=== PATIENT | female | born 1985 | race Caucasian/White ===

== ENCOUNTER 2016-09-06 13:23 | Emergency (ER) | payer MEDICAID ==
[~2016-09-06] VITALS: Ht 167.6 cm; Wt 93.0 kg
[~2016-09-06 13:23] MED LIST: ALPR.25 PO; BLOOKIT19; BUPR100T4 PO; FERR324T4 PO; GLUCOMTESTSTRIPS XX; INSU1MIS86 SQ; LANTUS2P SQ; METF1000 PO; MULT-65 PO; ONETKIT10 XX; PERI8.6T PO; PREG25 PO; PROM6.256 PO; PROP80CA PO; VITA-83 PO; Z.0.LANCETS XX
[2016-09-06 13:25] VITALS: BP 194/96; PULSE 101; RESP 17; TEMP 98.4; O2SAT 98
[2016-09-06] MEDS ORDERED: SODIUM CHLOR 0.9% 1000 ML INJ 1,000 ML IV SCH (14:04)
--- NOTE | 2016-09-06 14:12 | PD ---
HPI Chief Complaint: Abdominal Pain Time Seen by Provider: 14:04 Travel History International Travel<30 days: No Contact w/Intl Traveler<30days: No Traveled to known affect area: No History of Present Illness HPI This is a 30-year-old female with a history of diabetes mellitus, previous gallbladder disease, presents today with complaints of severe epigastric pain with radiation to her left lateral back. Patient reports nausea with no vomiting. She denies any fevers, chills. She does report pleuritic nature to the pain. There is also left sided abdominal pain in the lower abdominal area. The patient denies any dysuria urgency or frequency. The patient does have a history of tobacco use. The patient denies any long car rides, calf tenderness. PFSH Past Medical History Bipolar Disorder: Yes Depression: Yes Heart Rhythm Problems: Yes (TACHYCARDIA) Diabetes: Yes Diminished Hearing: No Kidney Stones: Yes Thyroid Disease: Yes Tubal Ligation: Yes Past Surgical History Abdominal Surgery: Yes (PYLORIC STENOSIS REPAIR AGE 4 WKS OLD) Social History Alcohol Use: No Tobacco Use: Yes (3 CIGARETTES A DAY) Substance Use: No Allergies-Medications (Allergen,Severity, Reaction): Coded Allergies: Albuterol (Verified Allergy, Severe, TACHYCARDIA, 09/06/16) Amoxicillin (Verified Allergy, Severe, "THROAT SWELLS", 09/06/16) Cephalexin (Verified Allergy, Severe, Rash, 09/06/16) Penicillin (Verified Allergy, Severe, STOP BREATHING, 09/06/16) Sulfa (Verified Allergy, Severe, Hives, 09/06/16) Reported Meds & Prescriptions Reported Meds & Active Scripts Active Lortab (Hydrocodone-Acetaminophen) 5-325 Mg Tab 1 Tab PO Q6H PRN Reglan (Metoclopramide HCl) 10 Mg Tab 10 Mg PO TID Bupropion HCl 100 Mg Tab 100 Mg PO TID Lyrica (Pregabalin) 25 Mg Cap 25 Mg PO BID Lantus Inj (Insulin Glargine) 1,000 Unit/10 Ml Vial 15 Units SQ HS Metformin (Metformin HCl) 1,000 Mg Tab 1,000 Mg PO BIDPC With meals Review of Systems Except as stated in HPI: all other systems reviewed are Neg General / Constitutional: No: Fever, Chills HENT: No: Headaches, Lightheadedness Cardiovascular: Positive: Chest Pain or Discomfort (left lower chest, upper abdominal, epigastric), No: Palpitations Respiratory: Positive: Pleuritic Pain, No: Cough, Shortness of Breath Gastrointestinal: Positive: Nausea, Abdominal Pain (left lateral), No: Vomiting Genitourinary: No: Frequency, Dysuria Musculoskeletal: No: Weakness, Pain Skin: No Rash Neurologic: No: Weakness, Dizziness Physical Exam Narrative GENERAL: Well-nourished, well-developed patient, in no acute respiratory distress. Complaining of pain. SKIN: Focused skin assessment warm/dry. HEAD: Normocephalic/atraumatic. EYES: No scleral icterus. No injection or drainage. NECK: Supple, trachea midline. CARDIOVASCULAR: Regular rate and rhythm without murmurs, gallops, or rubs. RESPIRATORY: Breath sounds equal bilaterally. No accessory muscle use. Limited secondary to patient reporting pain in her abdomen with respiration. GASTROINTESTINAL: Abdomen soft, nondistended. The patient has tenderness to palpation in her epigastrium and left upper quadrant. MUSCULOSKELETAL: No cyanosis, or edema. BACK: Nontender without obvious deformity. No CVA tenderness. NEUROLOGICAL: Awake and alert. Cranial nerves II through XII intact. Motor grossly within normal limits. Five out of 5 muscle strength in all muscle groups. Normal speech. Data Data Last Documented VS Vital Signs Date Time Temp Pulse Resp B/P Pulse Ox O2 Delivery O2 Flow Rate FiO2 09/06/16 18:00 104 16 141/72 98 Room Air 09/06/16 13:25 98.4 Orders Complete Blood Count With Diff (09/06/16 14:04) Comprehensive Metabolic Panel (09/06/16 14:04) Lipase (09/06/16 14:04) Urinalysis - C+S If Indicated (09/06/16 14:04) Iv Access Insert/Monitor (09/06/16 14:04) Ecg Monitoring (09/06/16 14:04) Oximetry (09/06/16 14:04) Ondansetron Inj (Zofran Inj) (09/06/16 14:15) Sodium Chlor 0.9% 1000 Ml Inj (Ns 1000 M (09/06/16 14:04) Sodium Chloride 0.9% Flush (Ns Flush) (09/06/16 14:15) Electrocardiogram (09/06/16 14:04) Hydromorphone Pf Inj (Dilaudid Pf Inj) (09/06/16 14:15) Ed Urine Pregnancytest Poc (09/06/16 14:04) Ckmb (Isoenzyme) Profile (09/06/16 14:04) Troponin I (09/06/16 14:04) Chest, Single Ap (09/06/16 15:35) Ct Abd/Pel W Iv Contrast(Rout) (09/06/16 15:50) Blood Glucose (09/06/16 15:55) Diatrizoate Liq ( Gastroview Liq) (09/06/16 16:09) Hydromorphone Pf Inj (Dilaudid Pf Inj) (09/06/16 17:45) Ondansetron Inj (Zofran Inj) (09/06/16 17:45) Iohexol 350 Inj (Omnipaque 350 Inj) (09/06/16 17:56) Labs Laboratory Tests Test 09/06/16 09/06/16 14:10 14:47 White Blood Count 14.2 TH/MM3 Red Blood Count 5.03 MIL/MM3 Hemoglobin 10.8 GM/DL Hematocrit 33.8 % Mean Corpuscular Volume 67.1 FL Mean Corpuscular Hemoglobin 21.4 PG Mean Corpuscular Hemoglobin 32.0 % Concent Red Cell Distribution Width 18.0 % Platelet Count 440 TH/MM3 Mean Platelet Volume 8.0 FL Neutrophils (%) (Auto) 70.6 % Lymphocytes (%) (Auto) 20.5 % Monocytes (%) (Auto) 5.9 % Eosinophils (%) (Auto) 2.1 % Basophils (%) (Auto) 0.9 % Neutrophils # (Auto) 10.0 TH/MM3 Lymphocytes # (Auto) 2.9 TH/MM3 Monocytes # (Auto) 0.8 TH/MM3 Eosinophils # (Auto) 0.3 TH/MM3 Basophils # (Auto) 0.1 TH/MM3 CBC Comment AUTO DIFF Differential Comment AUTO DIFF CONFIRMED Platelet Estimate HIGH Platelet Morphology Comment NORMAL Ovalocytes 1+ Sodium Level 138 MEQ/L Potassium Level 3.9 MEQ/L Chloride Level 103 MEQ/L Carbon Dioxide Level 27.1 MEQ/L Anion Gap 8 MEQ/L Blood Urea Nitrogen 9 MG/DL Creatinine 0.68 MG/DL Estimat Glomerular Filtration 100 ML/MIN Rate Random Glucose 89 MG/DL Calcium Level 9.6 MG/DL Total Bilirubin 0.3 MG/DL Aspartate Amino Transf 13 U/L (AST/SGOT) Alanine Aminotransferase 23 U/L (ALT/SGPT) Alkaline Phosphatase 72 U/L Total Creatine Kinase 47 U/L Troponin I LESS THAN 0.02 NG/ML Total Protein 8.0 GM/DL Albumin 3.7 GM/DL Lipase 118 U/L Urine Color YELLOW Urine Turbidity CLEAR Urine pH 6.0 Urine Specific [place] 1.011 Urine Protein NEG mg/dL Urine Glucose (UA) NEG mg/dL Urine Ketones NEG mg/dL Urine Occult Blood NEG Urine Nitrite NEG Urine Bilirubin NEG Urine Urobilinogen LESS THAN 2.0 MG/DL Urine Leukocyte Esterase NEG Urine RBC LESS THAN 1 /hpf Urine WBC LESS THAN 1 /hpf Urine Squamous Epithelial <1 /hpf Cells Urine Mucus FEW /lpf Microscopic Urinalysis Comment CULT NOT INDICATED MDM Medical Decision Making Medical Screen Exam Complete: Yes Emergency Medical Condition: Yes Differential Diagnosis Pancreatitis versus cholecystitis versus ACS Narrative Course 30-year-old female presents with complaints of abdominal pain. Patient reports upper abdominal pain. EKG and cardiac enzymes are within normal limits. Patient has no chest pain or chest pressure. She does have nausea with no vomiting yet. Labs including lipase showed no evidence of acute process except for an elevated white count of 14,000. CT scan of the and pelvis was ordered to rule out acute abdominal process. There was a follicular cysts and some thickened endometrium however no acute surgical abdomen on a. I discussed the findings with the patient. She states she was still having some discomfort however was improved. I did offer her admission for observation however she has requested to go home. She'll be given up her prescription in for Lortab and Reglan. She is instructed to return if she does any worsening symptoms i.e. worsening abdominal pain, fevers chills, nausea vomiting diarrhea, or any other reason concerns her. Diagnosis Primary Impression: Abdominal pain Additional Impressions: Nausea Diabetes mellitus Additional Instructions: Return if feeling worse, fevers chills, or any other reason. Hold your metformin 3 days. Scripts Hydrocodone-Acetaminophen (Lortab)5-325 Mg Tab1 Tab PO Q6H PRN (PAIN) #20 TAB Ref 0 Prov:Bo Medeiros MD 09/06/16 Metoclopramide (Reglan)10 Mg Tab10 Mg PO TID #30 TAB Ref 0 Prov:Bo Medeiros MD 09/06/16 Disposition: 01 DISCHARGE HOME Condition: Stable Bo Medeiros MD Sep 06, 2016 14:12
[2016-09-06] MEDS ORDERED: SODIUM CHLORIDE 0.9% FLUSH 10 ML FLUSH IV FLUSH PRN (14:15)
[2016-09-06] MEDS ORDERED: HYDROmorphone HCL PF 1 MG/ML VIAL IVS ONE (14:15)
[2016-09-06] MEDS ORDERED: ONDANSETRON HCL 4 MG/2 ML VIAL IVP ONE (14:15)
[2016-09-06 14:36] LABS: BASOPHIL # 0.1 TH/MM3 (0-0.2); BASOPHIL % 0.9 % (0.0-2.0); EOSINOPHIL # 0.3 TH/MM3 (0-0.4); EOSINOPHIL % 2.1 % (0.0-4.0); HEMATOCRIT 33.8 % (35.0-46.0); LYMPH % 20.5 % (9.0-44.0); LYMPHOCYTE # 2.9 TH/MM3 (1.0-4.8); MEAN CELL VOLUME 67.1 FL (80.0-100.0); MEAN CORPUSCULAR HEMOGLOBIN 21.4 PG (27.0-34.0); MONO % 5.9 % (0.0-8.0); NEUT % 70.6 % (16.0-70.0); PLATELET COUNT 440 TH/MM3 (150-450); RED BLOOD COUNT 5.03 MIL/MM3 (4.00-5.30); WHITE BLOOD COUNT 14.2 TH/MM3 (4.0-11.0)
[2016-09-06 14:37] LABS: HEMO FLAGS AUTO DIFF
[2016-09-06 15:01] LABS: OVALOCYTES 1+ (NORMAL); PLATELET ESTIMATE SMEAR HIGH (NORMAL); PLATELET MORPHOLOGY NORMAL (NORMAL); SCAN/DIFF AUTO DIFF CONFIRMED
[2016-09-06 15:12] LABS: BLOOD, URINE NEG (NEG); COMMENT (UR) CULT NOT INDICATED; CULTURE IF INDICATED CULT NOT INDICATED; GLUCOSE,URINE NEG (NEG); KETONE, URINE NEG (NEG); MUCUS URINE FEW /lpf (OCC); NITRITE,URINE NEG (NEG); SQUAMOUS EPITHELIAL CELL URINE <1 /hpf (0-5); URINE COLOR YELLOW (YELLW/STRAW)
[2016-09-06 15:36] LABS: ALT (GPT) 23 U/L (10-53); ANION GAP 8 MEQ/L (5-15); AST (GOT) 13 U/L (15-37); BICARBONATE 27.1 MEQ/L (21.0-32.0); BLOOD UREA NITROGEN 9 MG/DL (7-18); CHLORIDE 103 MEQ/L (98-107); GLOMERULAR FILTRATION RATE 100 ML/MIN (>89); POTASSIUM 3.9 MEQ/L (3.5-5.1); SODIUM (NA) 138 MEQ/L (136-145)
[2016-09-06 15:39] LABS: ALKALINE PHOSPHATASE 72 U/L (45-117); TOTAL BILIRUBIN ADULT 0.3 MG/DL (0.2-1.0)
[2016-09-06 15:40] LABS: CREATINE KINASE 47 U/L (26-192)
[2016-09-06] MEDS ORDERED: DIATRIZOATE MEGLUM/DIATRIZOATE SOD 9 ML CUP ONE (16:09)
--- NOTE | 2016-09-06 16:28 | RADRPT ---
EXAM DATE/TIME: 09/06/2016 15:43 [facility] COMPARISON: No previous studies available for comparison. INDICATIONS : Chest pain. MEDICAL HISTORY : None. SURGICAL HISTORY : None. ENCOUNTER: Initial ACUITY: 1 day PAIN SCORE: 7/10 LOCATION: Bilateral chest FINDINGS: A single view of the chest demonstrates the lungs to be symmetrically aerated without evidence of mas s, infiltrate or effusion. The cardiomediastinal contours are unremarkable. Osseous structures are intact. CONCLUSION: No acute disease. Manpreet Batres MD on September 06, 2016 at 16:26 Board Certified Radiologist. This report was verified electronically.
[2016-09-06] MEDS ORDERED: ONDANSETRON HCL 4 MG/2 ML VIAL IV PUSH ONE (17:45)
[2016-09-06] MEDS ORDERED: HYDROmorphone HCL PF 1 MG/ML VIAL IV PUSH ONE (17:45)
[2016-09-06] MEDS ORDERED: IOHEXOL 350 MG/ML 10 ML VIAL (for RAD DIAG) IV ONE (17:56)
[2016-09-06 18:00] VITALS: BP 141/72; PULSE 104; RESP 16; O2SAT 98
--- NOTE | 2016-09-06 18:28 | RADRPT ---
EXAM DATE/TIME: 09/06/2016 17:53 [facility] COMPARISON: No previous studies available for comparison. INDICATIONS : Left lower quadrant and back pain. IV CONTRAST: 96 cc Omnipaque 350 (iohexol) IV ORAL CONTRAST: No oral contrast ingested. RADIATION DOSE: 14.17 CTDIvol (mGy) MEDICAL HISTORY : Diabetes mellitus type 2. Renal calculi. SURGICAL HISTORY : pyloric stenosis repair ENCOUNTER: Initial ACUITY: 1 day PAIN SCALE: 7/10 LOCATION: abdomen TECHNIQUE: Volumetric scanning of the abdomen and pelvis was performed. Using automated exposure control and ad justment of the mA and/or kV according to patient size, radiation dose was kept as low as reasonably achievable to obtain optimal diagnostic quality images. FINDINGS: No masses are clear. Mild fatty liver. Spleen, adrenals, right kidney and pancreas demonstrate no acu te findings. No gallstones or biliary ductal dilatation. Upper pole left renal cyst present. No free fluid. No bowel obstruction. No adenopathy. There is some fluid attenuation in the endometria l cavity. No pelvic masses identified. Probable follicular cysts in the ovaries. CONCLUSION: 1. No acute findings within the abdomen or pelvis. Follicular cysts in the ovaries. Fluid attenuation in the endometrial cavity. Mild fatty liver. Left renal cyst. Manpreet Batres MD on September 06, 2016 at 18:23 Board Certified Radiologist. This report was verified electronically.
[2016-09-06] MEDS ORDERED: HYDR-3533 PO (18:56)
[2016-09-06] MEDS ORDERED: REGL10TA5 PO (18:56)
--- NOTE | 2016-09-07 15:24 | EKG ---
Date Performed: 09/06/2016 Time Performed: 14:22:26 PTAGE: 30 years EKG: Sinus rhythm When compared to previous tracing, no significant change. NORMAL ECG PREVIOUS TRACING : 04/02/1998 22.03 DOCTOR: Pawel Medina Interpretating Date/Time 09/07/2016 15:23:22
[2016-09-23] MEDS ORDERED: METF1000 PO (10:09)
[2016-09-29] MEDS ORDERED: BLOOD GLUCOSE M1 KIT (00:47)
[2016-09-29] MEDS ORDERED: ATOR20TA15 PO (00:47)
[2016-09-30] MEDS ORDERED: INSU-115 (14:08)
[2016-10-13] MEDS ORDERED: METR-1 PO (16:00)
[2016-11-24] MEDS ORDERED: LANTUS2P SQ (11:02)
[2016-11-24] MEDS ORDERED: FLUO20CA12 PO (11:05)
[2016-11-24] MEDS ORDERED: PRAV40TA2 PO (11:24)
== END 2016-09-06 19:45 | disposition home or self-care (01) ==
LOC: NEPE 13:23
DX: R10.9 Unspecified abdominal pain (principal); R11.0 Nausea; R07.9 Chest pain, unspecified; E11.9 Type 2 diabetes mellitus without complications; R00.0 Tachycardia, unspecified; Z87.442 Personal history of urinary calculi; F17.210 Nicotine dependence, cigarettes, uncomplicated
CPT/HCPCS: 71010; 74177; 80053; 81001; 82550; 83690; 84484; 84703; 85025; 93005; 96361; 96374; 96375; 96376; 99284; J1170; J2405; J7030; Q9963; Q9967

== ENCOUNTER 2017-03-09 19:32 | Emergency (ER) | payer MEDICAID ==
[~2017-03-09 19:32] MED LIST changes: -ALPR.25 PO; +BLOOD GLUCOSE M1 KIT; +BLOOD GLUCOSE T1 TES; -BLOOKIT19; -FERR324T4 PO; -GLUCOMTESTSTRIPS XX; +INSU-115; -INSU1MIS86 SQ; -MULT-65 PO; -ONETKIT10 XX; -PERI8.6T PO; -PREG25 PO; -PROM6.256 PO; +PROP10TA6 PO; -PROP80CA PO; -VITA-83 PO; -Z.0.LANCETS XX
[2017-03-09 19:34] VITALS: BP 150/95; PULSE 113; RESP 16; TEMP 99.1; O2SAT 100
== END 2017-03-09 22:35 | disposition left against medical advice (07) ==
LOC: NED 19:32
DX: R10.9 Unspecified abdominal pain (principal); Z53.21 Procedure and treatment not carried out due to patient leaving prior to being seen by health care provider
CPT/HCPCS: 99281